=== PATIENT | male | born 1975 | race African-American/Black ===

== ENCOUNTER 2017-05-01 05:45 | Emergency (ER) | payer BC ==
[~2017-05-01] VITALS: Ht 175.3 cm; Wt 70.3 kg
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
[2017-05-01 06:15] VITALS: BP 134/75
== END 2017-05-01 06:16 | disposition home or self-care (01) ==
LOC: ER 05:51
DX: S21.112A Laceration without foreign body of left front wall of thorax without penetration into thoracic cavity, initial encounter (principal); Y08.89XA Assault by other specified means, initial encounter; Y93.89 Activity, other specified; Y99.8 Other external cause status; Y92.89 Other specified places as the place of occurrence of the external cause
CPT/HCPCS: A4663

== ENCOUNTER 2017-07-18 11:26 | Emergency (ER) | payer BC ==
[~2017-07-18] VITALS: Ht 175.3 cm; Wt 70.3 kg
--- NOTE | 2017-07-18 12:00 | NUR ---
Patient discharged to home in stable conditon. Written and verbal after care instructions given. Patient verbalizes understanding of instructions.
== END 2017-07-18 12:01 | disposition home or self-care (01) ==
LOC: ER 11:26
DX: T16.2XXA Foreign body in left ear, initial encounter (principal); X58.XXXA Exposure to other specified factors, initial encounter; Y93.89 Activity, other specified; Y92.89 Other specified places as the place of occurrence of the external cause; Y99.9 Unspecified external cause status
CPT/HCPCS: 69200; 99284; A4217; A4663